=== PATIENT | male | born 1960 | race American Indian/Alaskan Native ===

== ENCOUNTER 2020-07-06 19:55 | Emergency (ER) | payer SELFPAY ==
[2020-07-06] MEDS ORDERED: SODIUM CHLORIDE 0.9% 500 ML 500 ML IV ONE ×2 (20:08→21:43)
[2020-07-06] MEDS: cefTRIAXone/NS 2 GM/100 ML 2 GM/100 ML BAG IV SCH (20:14)
[2020-07-06 20:28] LABS: ABG Base Excess -6.6 mmol/L (-2.0-3.0); ABG HCO3 17.1 mmol/L (20.0-26.0); ABG Methemoglobin 0.6 % (0.0-1.5); ABG Oxygen Saturation 89.3 % (95.0-99.0); ABG PCO2 29.8 mm Hg; ABG PH 7.378 pH Units (7.350-7.450); ABG PO2 60.2 mm Hg (80.0-90.0)
[2020-07-06 20:56] LABS: Hematocrit 44.5 % (35.5-45.6); Hemoglobin 14.4 gm/dl (11.8-15.2); Mean Corpuscular HGB Conc 32 % (32-34); Mean Corpuscular Volume 93 fl (84-94); Red Blood Count 4.81 M/mm3 (3.65-5.03); Red Cell Distribution Width 13.5 % (13.2-15.2)
[2020-07-06 20:57] LABS: Platelet Count 70 K/mm3 (140-440)
[2020-07-06 21:08] LABS: Albumin 2.5 g/dL (3.9-5); Calcium 8.4 mg/dL (8.4-10.2)
--- NOTE | 2020-07-06 21:08 | XRay Report ---
CHEST 1 VIEW 8:29 PM INDICATION / CLINICAL INFORMATION: Respiratory distress. COMPARISON: None available. FINDINGS: SUPPORT DEVICES: None. HEART / MEDIASTINUM: The heart size is normal. Pulmonary vasculature is difficult to evaluate. LUNGS / PLEURA: There is moderate patchy parenchymal disease throughout both lungs, more prominent pe ripherally and on the left. No significant pleural effusion. No pneumothorax. ADDITIONAL FINDINGS: No significant additional findings. IMPRESSION: Moderate patchy parenchymal disease bilaterally is nonspecific. Differential diagnosis in cludes atypical causes of infection, including viral pneumonia, and asymmetric edema. Signer Name: Kiet Rome MD Signed: 07/06/2020 9:03 PM Workstation Name: [id number]
[2020-07-06 21:09] LABS: C-Reactive Protein 22.5 mg/dL (0.00-1.30)
[2020-07-06 21:35] LABS: INR 1.43 (0.87-1.13); Partial Thromboplastin Time 29.2 Sec. (24.2-36.6)
[2020-07-06 21:36] LABS: Thrombin Time 18.6 Sec. (15.1-19.6)
[2020-07-06 21:42] LABS: Creatine Kinase MB 11.9 ng/mL (0.0-4.0)
[2020-07-06] MEDS ORDERED: SODIUM CHLORIDE 0.9% 1000 ML 1,000 ML IV ONE (21:43)
[2020-07-06] MEDS ORDERED: INSULIN REGULAR, HUMAN 100 UNIT/ML 3ML VIAL IV ONE (21:44)
--- NOTE | 2020-07-06 21:49 | Emergency Department Report ---
ED Neuro Deficit HPI - General Chief Complaint: Dyspnea/Respdistress Stated Complaint: DIFFICULTY BREATHING Time Seen by Provider: 07/06/20 20:05 Source: patient, RN/MD Mode of arrival: Stretcher Limitations: Other - History of Present Illness Initial Comments: [facility] Consult Services TeleStroke Metrics: LKW: 2107 Door Time: 1954 [facility] Contacted: 2103 [facility] at Bedside: 2111 NIHSS: 2125 Decision on Alteplase: Not to give as the patient's platelets are currently 70. Interventional Candidate: Possible candidate based on presentation. CTA head and neck are pending. Chief Complaint: Shortness of breath with acute right-sided weakness HPI: Asked to see this patient in emergent telemedicine consultation utilizing interactive audio and video technologies. Consultation was performed with assistance of ancillary / medical staff at bedside. Verbal consent to perform the examination with telemedicine was obtained. Patient agreed to proceed with the consultation for acute stroke protocol. 59-year-old right-handed [place] male who originally came to the hospital by EMS for acute respiratory failure and shortness of breath. Patient states he is not on any blood thinners or aspirin. He has never had a stroke before. Patient presented to the emergency room sometime around 8 PM. ER team suspects Covid pneumonia, and the patient was placed on BiPAP. He was noted to be moving all of his extremities and was following commands when he first came in. Then sometime around 9:08 PM, staff noticed that he was flaccid on the right side with an obvious right facial droop and slurred speech. Therefore, stroke alert was initiated. PMH: Hypertension SOC: Positive for tobacco abuse. Negative x2. He lives alone. FMH: Father with a stroke before ROS: 13 point review of systems were reviewed with the patient, and are all negative with the exception of the aforementioned in the history of present illness. VS: Pulse 125, respiration 47, blood pressure 149/70, 94% Exam: Patient is in moderate respiratory distress due to shortness of breath. Patient appears as stated age. No obvious acute cardiac distress. Patient is well groomed and well-nourished. 1a- LOC: Keenly responsive - 0 1b- LOC questions: Answers both questions correctly - 0 1c- LOC commands- Performs both tasks correctly- 0 2- Gaze: Normal; no gaze paresis or gaze deviation - 0 3- Visual Osuna: Right visual field deficit - 2 4- Facial movements: Right facial palsy - 2 5- Upper limb motor Right arm drift - 4 6- Lower limb motor Right leg drift - 3 7- Limb Coordination: absent ataxia - 0 8- Sensory: no sensory loss - 0 9- Language - No aphasia - 0 10- Speech - Mild dysarthria - 1 11- Neglect / Extinction - none found - 0 NIHSS score: 12 Diagnostic Data: WBC 17.7, hemoglobin 14.4, platelets 70 C-reactive protein 22.5, lactic acid 4.5, D-dimer greater than 10,000 Sodium 138, potassium 5.1, BUN 36, creatinine 1.5, blood glucose 609 ABG showed a pH of 7.37, PO2 60.2, PCO2 29.8 CT head showed no acute intracranial hemorrhage or mass. There appears to be a small acute right posterior parietal/MCA territory cortical stroke. There could also possible be a hyperdense left M2 sign within the left sylvian fissure. Medical Data Reviewed: 1.Data?reviewed include clinical labs, radiology,?and medical tests; 2.Tests?results discussed w/performing or interpreting physician; 3.Obtaining/reviewing old medical records; 4.Obtaining?case history from another source; 5.Independent?review of image, tracing, or specimen. Medical Decision Making: - Extensive number of diagnosis or management options are considered below. - Extensive amount of complex data reviewed. - High risk of complication and/or morbidity or mortality are associated with differential diagnostic considerations below. - There may be?uncertain?outcome and increased probability of prolonged functional impairment or high probability of severe prolonged functional impairment associated with some of these differential diagnosis. Differential Diagnosis for Stroke: 1.?Cardioembolic?stroke 2. Small vessel disease/lacune 3. Thromboembolic, [id number] mechanism 4.?Hypercoagulable?state-related infarct 5. Transient ischemic attack 6. Thrombotic mechanism, large artery disease Assessment: 1. Acute left MCA embolic stroke 2. Possible acute right MCA embolic stroke 3. Acute respiratory failure with possible Covid pneumonia 4. Hypertension 5. Tobacco abuse Recommendations: Patient is being sent back for a CT angiogram of the head and neck to evaluate for a left MCA large vessel occlusion. If positive, patient should be tra nsferred to a tertiary center that can offer evaluation for mechanical thrombectomy. Patient would likely require intubation prior to his transfer. If CTA head is negative for large vessel occlusion, he can be admitted to the hospital for further work-up of his symptoms. Infectious and pulmonary work-up and management per primary team Check MRI brain without contrast to rule out any acute intracranial process Check echocardiogram to gauge his cardiac function Maintain the patient on telemetry to monitor for paroxysmal atrial fibrillation Check hemoglobin A1c, lipid panel, and urine drug screen Consult PT, OT, and ST when he is more stable Maintain the patient on rectal aspirin for now Allow permissive hypertension Continue supportive care Thank you for allowing [facility] to participate in the care of your patient. Please call me, Dr. Gabriel, with any questions at [phone]. Case discussed with the ER staff and Dr. Ortiz. Critical Care notation: I was called to see this critical patient emergently. I personally evaluated this critical patient for acute stroke evaluation, and determining their eligibility for IV Alteplase and interventional therapies. I have spent approximately 7 minutes with the patient, including time at bedside, time discussing the case with other physicians, reviewing plan of care, and time independently reviewing the records and scans. - Related Data Allergies/Adverse Reactions: Allergies Allergy/AdvReac Type Severity Reaction Status Date / Time No Known Allergies Allergy Verified 07/06/20 20:54 ED Review of Systems ROS: Stated complaint: DIFFICULTY BREATHING Other details as noted in HPI ED Neuro Physical Exam - General Limitations: Other Suspected Stroke: Yes - NIHSS Assessment Interval: Baseline 1a. Level of Consciousness: alert/keenly responsive 1b. LOC Questions: answers both correctly 1c. LOC Commands: performs tasks correctly 2. Best Gaze: normal 3. Visual: complete hemianopia 4. Facial Palsy: partial paralysis 5b. Motor Arm Right: no movement 5a. Motor Arm Left: no drift 6a. Motor Leg Left: no drift 6b. Motor Leg Right: no gravity effort 7. Limb Ataxia: absent 8. Sensory: normal 9. Best Language: no aphasia 10. Dysarthria: mild/moderate dysarthria 11. Extinction/Inattention: no abnormality Total Score: 12 Stroke Severity: Moderate Stroke ED Course Vital Signs 07/06/20 07/06/20 07/06/20 16:41 16:45 17:00 Pulse Rate 95 H 99 H 94 H Respiratory 26 H 24 25 H Rate Blood Pressure 151/80 159/72 159/72 Blood Pressure [Left] O2 Sat by Pulse 100 100 100 Oximetry 07/06/20 07/06/20 07/06/20 17:16 17:30 17:46 Pulse Rate 92 H 86 86 Respiratory 27 H 25 H 23 Rate Blood Pressure 125/74 135/71 134/72 Blood Pressure [Left] O2 Sat by Pulse 100 100 100 Oximetry 07/06/20 07/06/20 07/06/20 18:00 18:15 18:30 Pulse Rate 86 85 83 Respiratory 24 23 25 H Rate Blood Pressure 136/67 140/71 140/71 Blood Pressure [Left] O2 Sat by Pulse 100 100 Oximetry 07/06/20 07/06/20 07/06/20 18:46 19:00 19:16 Pulse Rate 88 78 78 Respiratory 21 22 24 Rate Blood Pressure 136/74 145/70 143/69 Blood Pressure [Left] O2 Sat by Pulse 100 100 100 Oximetry 07/06/20 07/06/20 07/06/20 19:30 20:07 20:25 Pulse Rate 77 122 H 123 H Respiratory 22 38 H 38 H Rate Blood Pressure 146/72 123/82 Blood Pressure 123/82 [Left] O2 Sat by Pulse 100 97 Oximetry 07/06/20 07/06/20 20:41 20:45 Pulse Rate 124 H 125 H Respiratory 46 H 47 H Rate Blood Pressure 125/74 149/70 Blood Pressure [Left] O2 Sat by Pulse 96 94 Oximetry - Lab Data Result diagrams: 07/06/20 20:29 07/06/20 20:29 Lab Results 07/06/20 07/06/20 07/06/20 Range/Units 20:10 20:29 20:29 WBC 17.7 H (4.5-11.0) K/mm3 RBC 4.81 (3.65-5.03) M/mm3 Hgb 14.4 (11.8-15.2) gm/dl Hct 44.5 (35.5-45.6) % MCV 93 (84-94) fl MCH 30 (28-32) pg MCHC 32 (32-34) % RDW 13.5 (13.2-15.2) % Plt Count 70 L (140-440) K/mm3 Seg Neutrophils % Medical Billing And Coding Instructor PT (12.2-14.9) Sec. INR (0.87-1.13) APTT (24.2-36.6) Sec. Thrombin Time (15.1-19.6) Sec. D-Dimer (0-234) ng/mlDDU ABG pH 7.378 (7.350-7.450) pH Units ABG pCO2 29.8 mm Hg ABG pO2 60.2 L (80.0-90.0) mm Hg ABG HCO3 17.1 L (20.0-26.0) mmol/L ABG O2 Saturation 89.3 L (95.0-99.0) % ABG O2 Content 18.1 (0.0-44) ABG Base Excess -6.6 L (-2.0-3.0) mmol/L ABG Hemoglobin 14.8 (14.0-18.0) gm/dl ABG Carboxyhemoglobin 1.4 (0.0-5.0) % ABG Methemoglobin 0.6 (0.0-1.5) % Oxyhemoglobin 87.4 L (95.0-99.0) % FiO2 100 % Sodium 138 (137-145) mmol/L Potassium 5.1 H (3.6-5.0) mmol/L Chloride 99.9 (98-107) mmol/L Carbon Dioxide 20 L (22-30) mmol/L Anion Gap 23 mmol/L BUN 36 H (9-20) mg/dL Creatinine 1.5 H (0.8-1.3) mg/dL Estimated GFR 48 ml/min BUN/Creatinine Ratio 24 % Glucose 605 H* (75-100) mg/dL POC Glucose (70-105) mg/dL Lactic Acid (0.7-2.0) mmol/L Calcium 8.4 (8.4-10.2) mg/dL Total Bilirubin 0.40 (0.1-1.2) mg/dL AST 27 (5-40) units/L ALT 8 (7-56) units/L Alkaline Phosphatase 135 H (35-129) units/L Lactate Dehydrogenase (91-180) units/L Total Creatine Kinase (55-170) units/L CK-MB (CK-2) (0.0-4.0) ng/mL CK-MB (CK-2) Rel Index (0-4) Troponin T (0.00-0.029) ng/mL C-Reactive Protein (0.00-1.30) mg/dL Total Protein 6.5 (6.3-8.2) g/dL Albumin 2.5 L (3.9-5) g/dL Albumin/Globulin Ratio 0.6 % 07/06/20 07/06/20 07/06/20 Range/Units 20:29 20:29 20:29 WBC (4.5-11.0) K/mm3 RBC (3.65-5.03) M/mm3 Hgb (11.8-15.2) gm/dl Hct (35.5-45.6) % MCV (84-94) fl MCH (28-32) pg MCHC (32-34) % RDW (13.2-15.2) % Plt Count (140-440) K/mm3 Seg Neutrophils % PT (12.2-14.9) Sec. INR (0.87-1.13) APTT (24.2-36.6) Sec. Thrombin Time (15.1-19.6) Sec. D-Dimer > 29673 H (0-234) ng/mlDDU ABG pH (7.350-7.450) pH Units ABG pCO2 mm Hg ABG pO2 (80.0-90.0) mm Hg ABG HCO3 (20.0-26.0) mmol/L ABG O2 Saturation (95.0-99.0) % ABG O2 Content (0.0-44) ABG Base Excess (-2.0-3.0) mmol/L ABG Hemoglobin (14.0-18.0) gm/dl ABG Carboxyhemoglobin (0.0-5.0) % ABG Methemoglobin (0.0-1.5) % Oxyhemoglobin (95.0-99.0) % FiO2 % Sodium (137-145) mmol/L Potassium (3.6-5.0) mmol/L Chloride (98-107) mmol/L Carbon Dioxide (22-30) mmol/L Anion Gap mmol/L BUN (9-20) mg/dL Creatinine (0.8-1.3) mg/dL Estimated GFR ml/min BUN/Creatinine Ratio % Glucose 609 H* (75-100) mg/dL POC Glucose (70-105) mg/dL Lactic Acid 4.50 H* (0.7-2.0) mmol/L Calcium (8.4-10.2) mg/dL Total Bilirubin (0.1-1.2) mg/dL AST (5-40) units/L ALT (7-56) units/L Alkaline Phosphatase (35-129) units/L Lactate Dehydrogenase 615 H (91-180) units/L Total Creatine Kinase (55-170) units/L CK-MB (CK-2) (0.0-4.0) ng/mL CK-MB (CK-2) Rel Index (0-4) Troponin T (0.00-0.029) ng/mL C-Reactive Protein 22.50 H (0.00-1.30) mg/dL Total Protein (6.3-8.2) g/dL Albumin (3.9-5) g/dL Albumin/Globulin Ratio % 07/06/20 07/06/20 07/06/20 Range/Units 21:14 21:14 21:35 WBC (4.5-11.0) K/mm3 RBC (3.65-5.03) M/mm3 Hgb (11.8-15.2) gm/dl Hct (35.5-45.6) % MCV (84-94) fl MCH (28-32) pg MCHC (32-34) % RDW (13.2-15.2) % Plt Count (140-440) K/mm3 Seg Neutrophils % PT 17.4 H (12.2-14.9) Sec. INR 1.43 H (0.87-1.13) APTT 29.2 (24.2-36.6) Sec. Thrombin Time 18.6 (15.1-19.6) Sec. D-Dimer (0-234) ng/mlDDU ABG pH (7.350-7.450) pH Units ABG pCO2 mm Hg ABG pO2 (80.0-90.0) mm Hg ABG HCO3 (20.0-26.0) mmol/L ABG O2 Saturation (95.0-99.0) % ABG O2 Content (0.0-44) ABG Base Excess (-2.0-3.0) mmol/L ABG Hemoglobin (14.0-18.0) gm/dl ABG Carboxyhemoglobin (0.0-5.0) % ABG Methemoglobin (0.0-1.5) % Oxyhemoglobin (95.0-99.0) % FiO2 % Sodium (137-145) mmol/L Potassium (3.6-5.0) mmol/L Chloride (98-107) mmol/L Carbon Dioxide (22-30) mmol/L Anion Gap mmol/L BUN (9-20) mg/dL Creatinine (0.8-1.3) mg/dL Estimated GFR ml/min BUN/Creatinine Ratio % Glucose (75-100) mg/dL POC Glucose 484 H (70-105) mg/dL Lactic Acid (0.7-2.0) mmol/L Calcium (8.4-10.2) mg/dL Total Bilirubin (0.1-1.2) mg/dL AST (5-40) units/L ALT (7-56) units/L Alkaline Phosphatase (35-129) units/L Lactate Dehydrogenase (91-180) units/L Total Creatine Kinase 445 H (55-170) units/L CK-MB (CK-2) 11.9 H (0.0-4.0) ng/mL CK-MB (CK-2) Rel Index 2.6 (0-4) Troponin T 0.165 H* (0.00-0.029) ng/mL C-Reactive Protein (0.00-1.30) mg/dL Total Protein (6.3-8.2) g/dL Albumin (3.9-5) g/dL Albumin/Globulin Ratio % Critical care attestation.: If time is entered above; I have spent that time in minutes in the direct care of this critically ill patient, excluding procedure time. 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
--- NOTE | 2020-07-06 21:52 | Cat Scan Report ---
CT BRAIN: 07/06/2020 INDICATION / CLINICAL INFORMATION: Right-sided weakness COMPARISON: None available. FINDINGS: BRAIN/INTRACRANIAL STRUCTURES: Unenhanced CT images of the brain were obtained. No previous studies a re available here for comparison. There are several areas of abnormality. There is a 1 cm area of hypoattenuation in the left centrum semiovale, consistent with ischemic injur y of indeterminate age. There is a patchy area of hypoattenuation present in the right parieto-occipital cortex,, with no archana dence of hemorrhage. This may be an additional area of ischemic injury, with differential diagnosis d iscussed below. Bilateral cerebellar white matter and cortical hyper dense lesions are present bilaterally. This may also be due to ischemic injury, although underlying lesions cannot be excluded. EXTRACRANIAL STRUCTURES: Unremarkable. IMPRESSION: Scattered areas of cortical white matter hypodensity as described above, including left centrum semi ovale, right parieto-occipital cortex, and cerebellar hemispheres bilaterally. Differential diagnoses would include ischemic lesions of indeterminate age, possibly recent. Underlying multifocal parenchy mal lesions also be considered. Depending on further details of the clinical circumstances, follow-up with unenhanced and enhanced MRI may be helpful for further evaluation. No evidence of hemorrhage. Notification: Dr. Ortiz in the emergency department at [address] scans at this location are performed using dose reduction to ALARA by means of automated expos ure control. Signer Name: Adiel Short MD Signed: 07/06/2020 9:48 PM Workstation Name: [id number]
[2020-07-06 21:59] LABS: Chol/HDL Ratio 6.38 %
[2020-07-06] MEDS ORDERED: ASPIRIN 325 MG TAB PO ONE (22:04)
--- NOTE | 2020-07-06 22:11 | Consultation ---
History of Present Illness Consult date: 07/06/20 History of present illness: [facility] Tele[facility] Consult [facility] Date of Service: 07/06/2020 21:48:01 Impression: I63.9 - Cerebrovascular accident (CVA), unspecified mechanism (HCC) Comments/Sign-Out: 59 y/o man who presented to the ED with shortness of breath. Emergent telestroke consult for right sided weakness that occurred in the ED. Patient is thrombocytopenic. Metrics: Last Known Well: 07/06/2020 21:08:00 [facility] Notification Time: 07/06/2020 21:47:17 Arrival Time: 07/06/2020 19:55:00 Symptom Onset During ED Stay: 07/06/2020 09:56:45 Stamp Time: 07/06/2020 21:48:01 Time First Login Attempt: 07/06/2020 21:51:30 Video Start Time: 07/06/2020 21:51:30 Symptoms: right sided weakness NIHSS Start Assessment Time: 07/06/2020 21:55:12 Patient is not a candidate for Alteplase/Activase. Patient was not deemed candidate for Alteplase/Activase thrombolytics because of thrombocytopenia and coagulopathy. Video End Time: 07/06/2020 22:07:22 CT head was reviewed. Lower Likelihood of Large Vessel Occlusion but Following Stat Studies are Recommended CTA Head and Neck. Reviewed, No Indication of Large Vessel Occlusive Thrombus, Patient is not an MICHAEL Candidate. Radiologist was not called back for review of advanced imaging because Advanced neuroimaging reviewed and discussed with the ED attending. No proximal intracranial LVO as per my review. Not a thrombectomy candidate. Formal radiology read pending and to be f/u by the ED attending. Please call with any questions. Our recommendations are outlined below. Recommendations: Activate Stroke Protocol Admission/Order Set Stroke/Telemetry Floor Neuro Checks Bedside Swallow Eval DVT Prophylaxis IV Fluids, Normal Saline Head of Bed 30 Degrees Euglycemia and Avoid Hyperthermia (PRN Acetaminophen) Hold Antithrombotics for Now Covid testing Routine Consultation with Inhouse Neurology for Follow up Care Sign Out: Discussed with Emergency Department Provider History of Present Illness: Patient is a 59 year old Male. 59 y/o man who presented to the ED with shortness of breath. Emergent telestroke consult for right sided weakness that occurred in the ED. Last reported well at 2108 as per bedside nurse. He is on NIPPV due to respiratory distress. Patient is thrombocytopenic. Also elevated D-dimer and PT and INR. Patient reportedly exposed to a Covid. Neuroimaging reviewed and case discussed with ED attending at bedside. Examination: BP(173/113), Pulse(125), Blood Glucose(609) 1A: Level of Consciousness - Alert; keenly responsive + 0 1B: Ask Month and Age - Both Questions Right + 0 1C: Blink Eyes & Squeeze Hands - Performs Both Tasks + 0 2: Test Horizontal Extraocular Movements - Normal + 0 3: Test Visual Osuna - No Visual Loss + 0 4: Test Facial Palsy (Use Grimace if Obtunded) - Partial paralysis (lower face) + 2 5A: Test Left Arm Motor Drift - No Drift for 10 Seconds + 0 5B: Test Right Arm Motor Drift - No Effort Against [place] + 3 6A: Test Left Leg Motor Drift - No Drift for 5 Seconds + 0 6B: Test Right Leg Motor Drift - Some Effort Against [place] + 2 7: Test Limb Ataxia (FNF/Heel-Galvan) - No Ataxia + 0 8: Test Sensation - Mild-Moderate Loss: Less Sharp/More Dull + 1 9: Test Language/Aphasia - Normal; No aphasia + 0 10: Test Dysarthria - Mild-Moderate Dysarthria: Slurring but can be understood + 1 11: Test Extinction/Inattention - No abnormality + 0 NIHSS Score: 9 Patient/Family was informed the Neurology Consult would happen via TeleHealth consult by way of interactive audio and video telecommunications and consented to receiving care in this manner. Due to the immediate potential for life-threatening deterioration due to underlying acute neurologic illness, I spent 20 minutes providing critical care. This time includes time for face to face visit via telemedicine, review of medical records, imaging studies and discussion of findings with providers, the patient and/or family. Dr Keven Monson [facility] Case [id number] Medications and Allergies Allergies Allergy/AdvReac Type Severity Reaction Status Date / Time No Known Allergies Allergy Verified 07/06/20 20:54 Active Meds: Active Medications Ceftriaxone Sodium (Rocephin/Ns 2 Gm/100 Ml) 2 gm in 100 mls @ 200 mls/hr IV Q24HR DONNIE; Protocol Last Admin: 07/06/20 20:14 Dose: 200 mls/hr Documented by: Azithromycin 500 mg/ Sodium (Chloride) 250 mls @ 250 mls/hr IV Q24HR DONNIE; Protocol Sodium Chloride (Nacl 0.9% 1000 Ml) 1,000 mls @ 999 mls/hr IV BOLUS ONE Stop: 07/06/20 22:43 Sodium Chloride (Nacl 0.9% 500 Ml) 500 mls @ 999 mls/hr IV ONCE ONE Stop: 07/06/20 22:13 Physical Examination - Vital Signs Vital Signs: Vital Signs Pulse Resp BP Pulse Ox 95 H 26 H 151/80 100 07/06/20 16:41 07/06/20 16:41 07/06/20 16:41 07/06/20 16:41 Results - Laboratory Findings CBC and BMP: 07/06/20 20:29 07/06/20 20:29 Abnormal Lab Findings: Abnormal Labs 07/06/20 07/06/20 07/06/20 20:10 20:29 20:29 WBC 17.7 H Plt Count 70 L PT INR D-Dimer ABG pO2 60.2 L ABG HCO3 17.1 L ABG O2 Saturation 89.3 L ABG Base Excess -6.6 L Oxyhemoglobin 87.4 L Potassium 5.1 H Carbon Dioxide 20 L BUN 36 H Creatinine 1.5 H Glucose 605 H* POC Glucose Lactic Acid Alkaline Phosphatase 135 H Lactate Dehydrogenase Total Creatine Kinase CK-MB (CK-2) Troponin T C-Reactive Protein Albumin 2.5 L Triglycerides HDL Cholesterol 07/06/20 07/06/20 07/06/20 20:29 20:29 20:29 WBC Plt Count PT INR D-Dimer > 74985 H ABG pO2 ABG HCO3 ABG O2 Saturation ABG Base Excess Oxyhemoglobin Potassium Carbon Dioxide BUN Creatinine Glucose 609 H* POC Glucose Lactic Acid 4.50 H* Alkaline Phosphatase Lactate Dehydrogenase 615 H Total Creatine Kinase CK-MB (CK-2) Troponin T C-Reactive Protein 22.50 H Albumin Triglycerides HDL Cholesterol 07/06/20 07/06/20 07/06/20 21:14 21:14 21:35 WBC Plt Count PT 17.4 H INR 1.43 H D-Dimer ABG pO2 ABG HCO3 ABG O2 Saturation ABG Base Excess Oxyhemoglobin Potassium Carbon Dioxide BUN Creatinine Glucose POC Glucose 484 H Lactic Acid Alkaline Phosphatase Lactate Dehydrogenase Total Creatine Kinase 445 H CK-MB (CK-2) 11.9 H Troponin T 0.165 H* C-Reactive Protein Albumin Triglycerides 184 H HDL Cholesterol 18 L
[2020-07-06 22:20] LABS: Band Neutrophils # (Manual) 0.2 K/mm3; Basophils % (Manual) 0 % (0.0-1.8); Eosinophils % (Manual) 0 % (0.0-4.3); Total Cells Counted 100
[2020-07-06 22:24] LABS: Burr Cells Rare; Platelet Estimate Consistent w Auto
[2020-07-06] MEDS ORDERED: INSULIN REGULAR, HUMAN 100 UNITS/1 ML ONE (22:30)
--- NOTE | 2020-07-06 22:34 | Cat Scan Report ---
CTA HEAD WITH CONTRAST HISTORY: Right-sided weakness COMPARISON: None. TECHNIQUE: All CT scans at this location are performed using CT dose reduction for ALARA by means of automated exposure control.. 3-D/MIP reformats postprocessed. Percentage stenosis is determined by d irect quantitative measurements of diseased internal carotid artery diameter compared with normal dis claudette internal carotid artery reference segments or by criteria similar to NASCET where applicable. CONTRAST: 100 ml of Isovue 370 FINDINGS: CTA HEAD: Intracranial vertebral arteries: No significant abnormality. Basilar artery: No significant abnormality. Posterior cerebral arteries: No significant abnormality. Intracranial internal carotid arteries: No significant abnormality. Anterior cerebral arteries: No significant abnormality. Middle cerebral arteries: No significant abnormality. Dural venous sinuses:Not optimally opacified. No significant abnormality. Additional findings: Unenhanced CT evidence of abnormal vascularity or enhancement associated with th e areas of hypoattenuation identified on the earlier head CT. Incidental note is made of a right occipital scalp lipoma. IMPRESSION: 1. No significant abnormality. Signer Name: Adiel Short MD Signed: 07/06/2020 10:30 PM Workstation Name: [id number]
--- NOTE | 2020-07-06 22:37 | Cat Scan Report ---
CTA NECK WITH CONTRAST 07/06/2020 INDICATION / CLINICAL INFORMATION: Right-sided weakness. COMPARISON: None. TECHNIQUE: Routine CTA of the neck is performed. 3-D/MIP reformats were postprocessed. Percentage st enosis is determined by direct quantitative measurements of diseased internal carotid artery diameter compared with normal distal internal carotid artery reference segments or by criteria similar to DEMETRIUS CET where applicable. All CT scans at this location are performed using CT dose reduction for ALARA b y means of automated exposure control. CONTRAST: 100 ml of Isovue 370 FINDINGS: Carotid bifurcations: No evidence of carotid bifurcation stenosis. Carotid arteries: No significant abnormality. Cervical vertebral arteries: No significant abnormality. Aortic arch: No significant abnormality. Visualized portions of the upper lung dawn demonstrate extensive coarse pulmonary infiltrates, with more focal consolidation in the upper portion of the right lower lobe. Lungs are only partially eval uated as part of the cervical spine protocol. IMPRESSION: No evidence of significant vascular abnormality. Prominent pulmonary infiltrates suspicious for Covid bronchopneumonia. Signer Name: Adiel Short MD Signed: 07/06/2020 10:33 PM Workstation Name: [id number]
[2020-07-06] MEDS: AZITHROMYCIN 500 MG in SODIUM CHLORIDE 0.9% 250ML 250 ML IV SCH (22:42)
[2020-07-06] MEDS ORDERED: dexAMETHasone 20 MG/5 ML VIAL IV ONE (23:09)
--- NOTE | 2020-07-06 23:19 | Emergency Department Report ---
ED General Adult HPI - General Chief complaint: Dyspnea/Respdistress Stated complaint: DIFFICULTY BREATHING Time Seen by Provider: 07/06/20 20:05 Source: patient, RN/MD Mode of arrival: Stretcher Limitations: Other - History of Present Illness Initial comments: Patient is a 59-year-old gentleman who is presenting with with respiratory distress. Patient has had a exposure to COVID-19 per the patient. He has a history of hypertension diabetes. Patient is had increased shortness of breath over the last day. Paramedics state that his O2 sats were in the 50s on their arrival he was placed on a nonrebreather. We have placed the patient on BiPAP. States he has no chest pain has some mild body aches. Is been no nausea vomiting or diarrhea. There is a language barrier and we do not have any other information at this time. - Related Data Allergies Allergy/AdvReac Type Severity Reaction Status Date / Time No Known Allergies Allergy Verified 07/06/20 20:54 ED Review of Systems ROS: Stated complaint: DIFFICULTY BREATHING Other details as noted in HPI Comment: All other systems reviewed and negative ED Physical Exam - General Limitations: Language Barrier, Other General appearance: alert, in no apparent distress - Head Head exam: Present: atraumatic, normocephalic - Eye Eye exam: Present: normal appearance, PERRL, EOMI - ENT ENT exam: Present: normal orophraynx, mucous membranes moist - Neck Neck exam: Present: normal inspection - Respiratory Respiratory exam: Present: respiratory distress, rhonchi, accessory muscle use. Absent: normal lung sounds bilaterally, wheezes, rales - Cardiovascular Cardiovascular Exam: Present: normal rhythm, tachycardia, normal heart sounds. Absent: systolic murmur, diastolic murmur, rubs, gallop - GI/Abdominal GI/Abdominal exam: Present: soft, normal bowel sounds. Absent: distended, tenderness, guarding, rebound - Rectal Rectal exam: Present: deferred - Extremities Exam Extremities exam: Present: normal inspection - Back Exam Back exam: Present: normal inspection - Neurological Exam Neurological exam: Present: alert, oriented X3 - Psychiatric Psychiatric exam: Present: normal affect, normal mood - Skin Skin exam: Present: warm, dry, intact, normal color. Absent: rash ED Course Vital Signs 07/06/20 07/06/20 07/06/20 16:41 16:45 17:00 Pulse Rate 95 H 99 H 94 H Respiratory 26 H 24 25 H Rate Blood Pressure 151/80 159/72 159/72 Blood Pressure [Left] O2 Sat by Pulse 100 100 100 Oximetry 07/06/20 07/06/20 07/06/20 17:16 17:30 17:46 Pulse Rate 92 H 86 86 Respiratory 27 H 25 H 23 Rate Blood Pressure 125/74 135/71 134/72 Blood Pressure [Left] O2 Sat by Pulse 100 100 100 Oximetry 07/06/20 07/06/20 07/06/20 18:00 18:15 18:30 Pulse Rate 86 85 83 Respiratory 24 23 25 H Rate Blood Pressure 136/67 140/71 140/71 Blood Pressure [Left] O2 Sat by Pulse 100 100 Oximetry 07/06/20 07/06/20 07/06/20 18:46 19:00 19:16 Pulse Rate 88 78 78 Respiratory 21 22 24 Rate Blood Pressure 136/74 145/70 143/69 Blood Pressure [Left] O2 Sat by Pulse 100 100 100 Oximetry 07/06/20 07/06/20 07/06/20 19:30 19:46 20:00 Pulse Rate 77 121 H Respiratory 22 44 H Rate Blood Pressure 146/72 149/70 123/82 Blood Pressure [Left] O2 Sat by Pulse 100 92 Oximetry 07/06/20 07/06/20 07/06/20 20:07 20:16 20:25 Pulse Rate 122 H 121 H 123 H Respiratory 38 H 47 H 38 H Rate Blood Pressure 94/66 123/82 Blood Pressure 123/82 [Left] O2 Sat by Pulse 97 Oximetry 07/06/20 07/06/20 07/06/20 20:41 20:45 21:01 Pulse Rate 124 H 125 H 126 H Respiratory 46 H 47 H 57 H Rate Blood Pressure 125/74 149/70 153/93 Blood Pressure [Left] O2 Sat by Pulse 96 94 80 L Oximetry 07/06/20 07/06/20 07/06/20 21:23 21:30 21:55 Pulse Rate 124 H 123 H Respiratory 45 H 20 Rate Blood Pressure 153/93 172/106 172/106 Blood Pressure [Left] O2 Sat by Pulse 64 L 78 L 89 Oximetry 07/06/20 07/06/20 07/06/20 22:00 22:15 22:31 Pulse Rate 126 H 130 H 130 H Respiratory 48 H 44 H 47 H Rate Blood Pressure 173/113 173/113 170/104 Blood Pressure [Left] O2 Sat by Pulse 93 89 90 Oximetry 07/06/20 07/06/20 07/06/20 22:33 22:34 22:45 Pulse Rate 125 H 131 H 102 H Respiratory 49 H 56 H Rate Blood Pressure 217/134 217/134 170/104 Blood Pressure [Left] O2 Sat by Pulse 91 Oximetry 07/06/20 23:01 Pulse Rate 100 H Respiratory 48 H Rate Blood Pressure 170/104 Blood Pressure [Left] O2 Sat by Pulse 65 L Oximetry - Reevaluation(s) Reevaluation #1: Neurology consult is as follows CTA head appears to show patent proximal bilateral MCA vessels, basilar artery, and vertebral arteries. Formal report is pending. Dr. Ortiz was updated on these findings. He will await formal read from radiology. Patient is not an interventional candidate at this point in time. Original Note: ED Neuro Deficit HPI - General Chief Complaint: Dyspnea/Respdistress Stated Complaint: DIFFICULTY BREATHING Time Seen by Provider: 07/06/20 20:05 Source: patient, RN/MD Mode of arrival: Stretcher Limitations: Other - History of Present Illness Initial Comments: [facility] TeleStroke Metrics: LKW: 2107 Door Time: 1954 [facility] Contacted: 2103 [facility] at Bedside: 2111 NIHSS: 2126 Decision on Alteplase: Not to give as the patient's platelets are currently 70. Interventional Candidate: Possible candidate based on presentation. CTA head and neck are pending. Chief Complaint: Shortness of breath with acute right-sided weakness HPI: Asked to see this patient in emergent telemedicine consultation utilizing interactive audio and video technologies. Consultation was performed with assistance of ancillary / medical staff at bedside. Verbal consent to perform the examination with telemedicine was obtained. Patient agreed to proceed with the consultation for acute stroke protocol. 59-year-old right-handed [place] male who originally came to the hospital by EMS for acute respiratory failure and shortness of breath. Patient states he is not on any blood thinners or aspirin. He has never had a stroke before. Patient presented to the emergency room sometime around 8 PM. ER team suspects Covid pneumonia, and the patient was placed on BiPAP. He was noted to be moving all of his extremities and was following commands when he first came in. Then sometime around 9:08 PM, staff noticed that he was flaccid on the right side with an obvious right facial droop and slurred speech. Therefore, stroke alert was initiated. PMH: Hypertension SOC: Positive for tobacco abuse. Negative x2. He lives alone. FMH: Father with a stroke before ROS: 13 point review of systems were reviewed with the patient, and are all negative with the exception of the aforementioned in the history of present illness. VS: Pulse 125, respiration 47, blood pressure 149/70, 94% Exam: Patient is in moderate respiratory distress due to shortness of breath. Patient appears as stated age. No obvious acute cardiac distress. Patient is well groomed and well-nourished. 1a- LOC: Keenly responsive - 0 1b- LOC questions: Answers both questions correctly - 0 1c- LOC commands- Performs both tasks correctly- 0 2- Gaze: Normal; no gaze paresis or gaze deviation - 0 3- Visual [place]: Right visual field deficit - 2 4- Facial movements: Right facial palsy - 2 5- Upper limb motor Right arm drift - 4 6- Lower limb motor Right leg drift - 3 7- Limb Coordination: absent ataxia - 0 8- Sensory: no sensory loss - 0 9- Language - No aphasia - 0 10- Speech - Mild dysarthria - 1 11- Neglect / Extinction - none found - 0 NIHSS score: 12 Diagnostic Data: WBC 17.7, hemoglobin 14.4, platelets 70 C-reactive protein 22.5, lactic acid 4.5, D-dimer greater than 10,000 Sodium 138, potassium 5.1, BUN 36, creatinine 1.5, blood glucose 609 ABG showed a pH of 7.37, PO2 60.2, PCO2 29.8 CT head showed no acute intracranial hemorrhage or mass. There appears to be a small acute right posterior parietal/MCA territory cortical stroke. There could also possible be a hyperdense left M2 sign within the left sylvian fissure. Medical Data Reviewed: 1.Data?reviewed include clinical labs, radiology,?and medical tests; 2.Tests?results discussed w/performing or interpreting physician; 3.Obtaining/reviewing old medical records; 4.Obtaining?case history from another source; 5.Independent?review of image, tracing, or specimen. Medical Decision Making: - Extensive number of diagnosis or management options are considered below. - Extensive amount of complex data reviewed. - High risk of complication and/or morbidity or mortality are associated with differential diagnostic considerations below. - There may be?uncertain?outcome and increased probability of prolonged functional impairment or high probability of severe prolonged functional impairment associated with some of these differential diagnosis. Differential Diagnosis for Stroke: 1.?Cardioembolic?stroke 2. Small vessel disease/lacune 3. Thromboembolic, [id number] mechanism 4.?Hypercoagulable?state-related infarct 5. Transient ischemic attack 6. Thrombotic mechanism, large artery disease Assessment: 1. Acute left MCA embolic stroke 2. Possible acute right MCA embolic stroke 3. Acute respiratory failure with possible Covid pneumonia 4. Hypertension 5. Tobacco abuse Recommendations: Patient is being sent back for a CT angiogram of the head and neck to evaluate for a left MCA large vessel occlusion. If positive, patient should be transferred to a tertiary center that can offer evaluation for mechanical thrombectomy. Patient would likely require intubation prior to his transfer. If CTA head is negative for large vessel occlusion, he can be admitted to the hospital for further work-up of his symptoms. Infectious and pulmonary work-up and management per primary team Check MRI brain without contrast to rule out any acute intracranial process Check echocardiogram to gauge his cardiac function Maintain the patient on telemetry to monitor for paroxysmal atrial fibrillation Check hemoglobin A1c, lipid panel, and urine drug screen Consult PT, OT, and ST when he is more stable Maintain the patient on rectal aspirin for now Allow permissive hypertension Continue supportive care Thank you for allowing [facility] to participate in the care of your patient. Please call me, Dr. Gabriel, with any questions at [phone]. Case discussed with the ER staff and Dr. Ortiz. Critical Care notation: I was called to see this critical patient emergently. I personally evaluated this critical patient for acute stroke evaluation, and determining their eligibility for IV Alteplase and interventional therapies. I have spent approximately 7 minutes with the patient, including time at bedside, time discussing the case with other physicians, reviewing plan of care, and time independently reviewing the records and scans. 07/06/20 23:15 Reevaluation #2: 07/06/20 23:17 Please see the note from the neurologist above. Patient after arriving to did appear to have an acute CVA. Patient is platelet count is too low for TPA and also on his CT is mentioned that he has multiple subacute stroke type lesions. Patient was given aspirin. ED Medical Decision Making - Lab Data Result diagrams: 07/06/20 20:29 07/06/20 20:29 - Medical Decision Making Patient is a 59-year-old [place] gentleman who is presenting in respiratory distress. Patient was hypoxia prior to his arrival but appears to be doing well on BiPAP. Patient is does become hypoxic anytime he takes the mask off and we did have to place the patient in soft restraints. Patient was noted to have acute onset of right-sided weakness after arrival. It appears as though the patient has had a acute CVA but has some subacute lesions on CT as well. CTAs did not show any large vessel occlusion and it does not appear as he that he is a candidate for thrombectomy at this time. Patient did be sepsis protocol and was given IV fluids lactic acid was drawn and the patient was given Rocephin and azithromycin. Again his infiltrates are most likely secondary to COVID-19 infection. Patient's inflammatory markers are all elevated. Because of the extreme elevation of his D-dimer and the fact that he likely had a thrombotic episode today given the fact he had acute stroke a VQ scan will be performed. Patient will be admitted to ICU. Critical Care Time: Yes (73) Critical care attestation.: If time is entered above; I have spent that time in minutes in the direct care of this critically ill patient, excluding procedure time. ED Disposition Clinical Impression: Left middle cerebral artery stroke, COVID-19, Acute respiratory distress, Hypoxia, Hyperglycemia Bilateral pneumonia Qualifiers: Pneumonia type: due to unspecified organism Lung location: unspecified part of lung Qualified Code(s): J18.9 - Pneumonia, unspecified organism Acute renal failure Qualifiers: Acute renal failure type: unspecified Qualified Code(s): N17.9 - Acute kidney failure, unspecified Hypertension Qualifiers: Hypertension type: unspecified Qualified Code(s): I10 - Essential (primary) hypertension Disposition: OP ADMIT IP TO THIS HOSP Is pt being admited?: Yes Does the pt Need Aspirin: No Condition: Critical Instructions: Bacterial Pneumonia (ED), Hypertension (ED) Time of Disposition: 23:24
[2020-07-06] MEDS ORDERED: MORPHINE 2 MG/1 ML INJ IV PRN (23:44)
[2020-07-06] MEDS ORDERED: METOCLOPRAMIDE 10 MG TAB PO PRN (23:44)
[2020-07-06] MEDS ORDERED: PROMETHAZINE 25 MG RECT SUPP PR PRN (23:44)
[2020-07-06] MEDS ORDERED: METOCLOPRAMIDE 10 MG/2 ML INJ IV PRN (23:44)
[2020-07-06] MEDS ORDERED: ACETAMINOPHEN 325 MG TAB PO PRN (23:44)
[2020-07-06] MEDS ORDERED: ONDANSETRON 4 MG/2 ML INJ IV PRN (23:44)
[2020-07-06] MEDS ORDERED: MAGNESIUM HYDROXIDE (MOM) ORAL LIQD UDC PO PRN (23:44)
[2020-07-06] MEDS ORDERED: DEXTROSE 50% IN WATER (25GM) 50 ML SYRINGE IV PRN (23:44)
--- NOTE | 2020-07-06 23:59 | History and Physical Report ---
History of Present Illness Date of examination: 07/06/20 Date of admission: 07/06/2020 Chief complaint: Respiratory Distress History of present illness: 59-year-old male with known history of hypertension and diabetes mellitus Presenting to the emergency room today in respiratory distress. Patient is said to have had exposure to Covid 19. He is said to have had increased shortness of breath over the last 24 hours. Most of the history was gotten from the ER staff as patient is not able to communicate in [place] and also in respiratory distress. En route, oxygen saturation was said to be in the 50s and patient was placed on nonrebreather by EMS and then subsequently placed on BiPAP or per arrival in the ER.. Work-up in the emergency room today chest x-ray shows bilateral pulmonary infiltrate, labs were significant for hyperglycemia of good blood sugar was in the 600s. During the course of his stay in the emergency room he had developed right-sided facial droop and CT of the head showed: ischemic lesions of indeterminate age, possibly recent. Patient was seen by tele neurologist. Permissive hypertension was recommended and also daily aspirin. Patient's condition however deteriorated while in the emergency room as he went into respiratory failure. He was subsequently intubated. Patient was started on empiric IV antibiotics for pneumonia and also placed on isolation precautions to rule out Covid. Early Childhood Teacher Assistant was called and notified of patient's condition shortly after he was intubated. Recommendations were given for the vent settings. Patient coded twice during the course of his stay in the emergency room. He was successfully resuscitated going by the ACLS protocol. NB: Prognosis is poor. Past History Past Medical History: diabetes, hypertension Past Surgical History: No surgical history Social history: no significant social history Family history: no significant family history Medications and Allergies Allergies Allergy/AdvReac Type Severity Reaction Status Date / Time No Known Allergies Allergy Verified 07/06/20 20:54 Active Meds: Active Medications Ceftriaxone Sodium (Rocephin/Ns 2 Gm/100 Ml) 2 gm in 100 mls @ 200 mls/hr IV Q 24HR DONNIE; Protocol Last Admin: 07/06/20 20:14 Dose: 200 mls/hr Documented by: Azithromycin 500 mg/ Sodium (Chloride) 250 mls @ 250 mls/hr IV Q24HR DONNIE; Protocol Last Admin: 07/06/20 22:42 Dose: 250 mls/hr Documented by: Review of Systems Constitutional: no fever, no chills Ears, nose, mouth and throat: no nasal congestion, no sore throat Cardiovascular: no chest pain, no palpitations Respiratory: cough, shortness of breath Gastrointestinal: no abdominal pain, no nausea, no vomiting, no diarrhea Genitourinary Male: no dysuria, no hematuria, no flank pain Musculoskeletal: no neck pain, no low back pain Integumentary: no rash, no pruritis Neurological: no headaches, no confusion Psychiatric: no anxiety, no depression Exam - Constitutional Vitals: Temp Pulse Resp BP Pulse Ox 100 H 48 H 170/104 65 L 07/06/20 23:01 07/06/20 23:01 07/06/20 23:01 07/06/20 23:01 General appearance: Present: mild distress, well-nourished - EENT Eyes: Present: PERRL, EOM intact. Absent: scleral icterus ENT: hearing intact, clear oral mucosa, dentition normal - Neck Neck: Present: supple, normal ROM - Respiratory Respiratory effort: normal Respiratory: bilateral: diminished - Cardiovascular Rhythm: regular Heart Sounds: Present: S1 & S2. Absent: gallop, systolic murmur, diastolic murmur, rub - Extremities Extremities: no ischemia, pulses intact, pulses symmetrical, No edema, normal temperature, normal color, Full ROM Peripheral Pulses: within normal limits - Abdominal General gastrointestinal: Present: soft, non-tender, non-distended, normal bowel sounds. Absent: mass - Integumentary Integumentary: Present: clear, warm, dry. Absent: rash - Musculoskeletal Musculoskeletal: strength equal bilaterally - Psychiatric Psychiatric: appropriate mood/affect, intact judgment & insight, memory intact, cooperative - Neurologic Neurologic: CNII-XII intact, focal deficits (Mild Right sided facial droop), moves all extremities HEART Score - HEART Score Troponin: Troponin T 0.165 ng/mL (0.00-0.029) H* 07/06/20 21:14 Results - Labs CBC & Chem 7: 07/06/20 20:29 07/06/20 20:29 Labs: Abnormal lab results 07/06/20 07/06/20 07/06/20 Range/Units 20:10 20:29 20:29 WBC 17.7 H (4.5-11.0) K/mm3 Plt Count 70 L (140-440) K/mm3 Seg Neuts % (Manual) 92.0 H (40.0-70.0) % Lymphocytes % (Manual) 3.0 L (13.4-35.0) % Seg Neutrophils # Man 16.3 H (1.8-7.7) K/mm3 Lymphocytes # (Manual) 0.5 L (1.2-5.4) K/mm3 PT (12.2-14.9) Sec. INR (0.87-1.13) D-Dimer (0-234) ng/mlDDU ABG pO2 60.2 L (80.0-90.0) mm Hg ABG HCO3 17.1 L (20.0-26.0) mmol/L ABG O2 Saturation 89.3 L (95.0-99.0) % ABG Base Excess -6.6 L (-2.0-3.0) mmol/L Oxyhemoglobin 87.4 L (95.0-99.0) % Potassium 5.1 H (3.6-5.0) mmol/L Carbon Dioxide 20 L (22-30) mmol/L BUN 36 H (9-20) mg/dL Creatinine 1.5 H (0.8-1.3) mg/dL Glucose 605 H* (75-100) mg/dL POC Glucose (70-105) mg/dL Lactic Acid (0.7-2.0) mmol/L Ferritin (30.0-300.0) ng/mL Alkaline Phosphatase 135 H (35-129) units/L Lactate Dehydrogenase (91-180) units/L Total Creatine Kinase (55-170) units/L CK-MB (CK-2) (0.0-4.0) ng/mL Troponin T (0.00-0.029) ng/mL C-Reactive Protein (0.00-1.30) mg/dL Albumin 2.5 L (3.9-5) g/dL Triglycerides (2-149) mg/dL HDL Cholesterol (40-59) mg/dL 07/06/20 07/06/20 07/06/20 Range/Units 20:29 20:29 20:29 WBC (4.5-11.0) K/mm3 Plt Count (140-440) K/mm3 Seg Neuts % (Manual) (40.0-70.0) % Lymphocytes % (Manual) (13.4-35.0) % Seg Neutrophils # Man (1.8-7.7) K/mm3 Lymphocytes # (Manual) (1.2-5.4) K/mm3 PT (12.2-14.9) Sec. INR (0.87-1.13) D-Dimer > 53923 H (0-234) ng/mlDDU ABG pO2 (80.0-90.0) mm Hg ABG HCO3 (20.0-26.0) mmol/L ABG O2 Saturation (95.0-99.0) % ABG Base Excess (-2.0-3.0) mmol/L Oxyhemoglobin (95.0-99.0) % Potassium (3.6-5.0) mmol/L Carbon Dioxide (22-30) mmol/L BUN (9-20) mg/dL Creatinine (0.8-1.3) mg/dL Glucose 609 H* (75-100) mg/dL POC Glucose (70-105) mg/dL Lactic Acid 4.50 H* (0.7-2.0) mmol/L Ferritin (30.0-300.0) ng/mL Alkaline Phosphatase (35-129) units/L Lactate Dehydrogenase 615 H (91-180) units/L Total Creatine Kinase (55-170) units/L CK-MB (CK-2) (0.0-4.0) ng/mL Troponin T (0.00-0.029) ng/mL C-Reactive Protein 22.50 H (0.00-1.30) mg/dL Albumin (3.9-5) g/dL Triglycerides (2-149) mg/dL HDL Cholesterol (40-59) mg/dL 07/06/20 07/06/20 07/06/20 Range/Units 20:29 21:14 21:14 WBC (4.5-11.0) K/mm3 Plt Count (140-440) K/mm3 Seg Neuts % (Manual) (40.0-70.0) % Lymphocytes % (Manual) (13.4-35.0) % Seg Neutrophils # Man (1.8-7.7) K/mm3 Lymphocytes # (Manual) (1.2-5.4) K/mm3 PT 17.4 H (12.2-14.9) Sec. INR 1.43 H (0.87-1.13) D-Dimer (0-234) ng/mlDDU ABG pO2 (80.0-90.0) mm Hg ABG HCO3 (20.0-26.0) mmol/L ABG O2 Saturation (95.0-99.0) % ABG Base Excess (-2.0-3.0) mmol/L Oxyhemoglobin (95.0-99.0) % Potassium (3.6-5.0) mmol/L Carbon Dioxide (22-30) mmol/L BUN (9-20) mg/dL Creatinine (0.8-1.3) mg/dL Glucose (75-100) mg/dL POC Glucose (70-105) mg/dL Lactic Acid (0.7-2.0) mmol/L Ferritin 3604.0 H (30.0-300.0) ng/mL Alkaline Phosphatase (35-129) units/L Lactate Dehydrogenase (91-180) units/L Total Creatine Kinase 445 H (55-170) units/L CK-MB (CK-2) 11.9 H (0.0-4.0) ng/mL Troponin T 0.165 H* (0.00-0.029) ng/mL C-Reactive Protein (0.00-1.30) mg/dL Albumin (3.9-5) g/dL Triglycerides 184 H (2-149) mg/dL HDL Cholesterol 18 L (40-59) mg/dL 07/06/20 Range/Units 21:35 WBC (4.5-11.0) K/mm3 Plt Count (140-440) K/mm3 Seg Neuts % (Manual) (40.0-70.0) % Lymphocytes % (Manual) (13.4-35.0) % Seg Neutrophils # Man (1.8-7.7) K/mm3 Lymphocytes # (Manual) (1.2-5.4) K/mm3 PT (12.2-14.9) Sec. INR (0.87-1.13) D-Dimer (0-234) ng/mlDDU ABG pO2 (80.0-90.0) mm Hg ABG HCO3 (20.0-26.0) mmol/L ABG O2 Saturation (95.0-99.0) % ABG Base Excess (-2.0-3.0) mmol/L Oxyhemoglobin (95.0-99.0) % Potassium (3.6-5.0) mmol/L Carbon Dioxide (22-30) mmol/L BUN (9-20) mg/dL Creatinine (0.8-1.3) mg/dL Glucose (75-100) mg/dL POC Glucose 484 H (70-105) mg/dL Lactic Acid (0.7-2.0) mmol/L Ferritin (30.0-300.0) ng/mL Alkaline Phosphatase (35-129) units/L Lactate Dehydrogenase (91-180) units/L Total Creatine Kinase (55-170) units/L CK-MB (CK-2) (0.0-4.0) ng/mL Troponin T (0.00-0.029) ng/mL C-Reactive Protein (0.00-1.30) mg/dL Albumin (3.9-5) g/dL Triglycerides (2-149) mg/dL HDL Cholesterol (40-59) mg/dL Assessment and Plan - Patient Problems (1) Acute respiratory distress Current Visit: Yes Status: Acute Plan to address problem: Possibly secondary to the bilateral pneumonia from Covid. Patient currently intubated and sedated. (2) Bilateral pneumonia Current Visit: Yes Status: Acute Qualifiers: Pneumonia type: due to unspecified organism Lung location: unspecified part of lung Qualified Code(s): J18.9 - Pneumonia, unspecified organism Plan to address problem: Patient placed on empiric IV antibiotics. We await culture results. (3) COVID-19 Current Visit: Yes Status: Acute Plan to address problem: He has been placed on isolation precautions. Consult placed to infectious disease for evaluation. (4) Hyperglycemia Current Visit: Yes Status: Acute Plan to address problem: Patient be placed on sliding scale and will monitor blood glucose closely. (5) CVA (cerebral vascular accident) Current Visit: Yes Status: Acute Plan to address problem: We will request neurology follow-up. (6) DVT prophylaxis Current Visit: Yes Status: Acute Plan to address problem: We will place on sequential compression device. Anticoagulation withheld in view of the thrombocytopenia. (7) Full code status Current Visit: Yes Status: Acute
[2020-07-07] MEDS ORDERED: SUCCINYLCHOLINE CHLORIDE 200 MG/10 ML INJ MDV ONE (00:01)
[2020-07-07] MEDS ORDERED: ETOMIDATE 20 MG/10 ML INJ IV ONE ×3 (00:01→02:54)
[2020-07-07] MEDS ORDERED: NORepinephrine/NS 4 MG-250 ML 4 MG/250 ML BAG IV ONE ×3 (00:35→07:33)
--- NOTE | 2020-07-07 00:57 | XRay Report ---
CHEST 1 VIEW INDICATION / CLINICAL INFORMATION: post intubation. COMPARISON: Chest radiograph earlier same day FINDINGS: SUPPORT DEVICES: Interval placement of endotracheal tube with tip terminating approximately 5.8 cm ab ove the michel. Interval placement of enteric tube with tip terminating in the gastric body and side hole distal to the gastroesophageal junction. HEART / MEDIASTINUM: No significant abnormality. LUNGS / PLEURA: Moderate patchy bilateral airspace opacities appear slightly worsened from the prior study, particularly in the right mid to lower lung. No pneumothorax. ADDITIONAL FINDINGS: No significant additional findings. IMPRESSION: 1. Interval placement of endotracheal and enteric tubes which appear appropriately positioned. 2. Slight interval worsening of bilateral patchy airspace opacities. Signer Name: Leny Moore MD Signed: 07/07/2020 12:53 AM Workstation Name: [id number]
[2020-07-07] MEDS ORDERED: MINERAL OIL/PETROLATUM, WHITE OPHTH OINT 3.5 GM OU PRN (01:18)
[2020-07-07] MEDS ORDERED: MIDAZOLAM 2 MG/2 ML INJ IV PRN (01:18)
[2020-07-07] MEDS ORDERED: LIP THERAPY VASELINE TP PRN (01:18)
[2020-07-07] MEDS ORDERED: fentaNYL DRIP Premix 2,000 MCG/100 ML BAG IV ONE ×2 (01:27→05:47)
[2020-07-07] MEDS ORDERED: fentaNYL 100 MCG/2 ML INJ IV PRN (01:29)
[2020-07-07 01:44] LABS: ABG Base Excess -7.6 mmol/L (-2.0-3.0); ABG HCO3 20.9 mmol/L (20.0-26.0); ABG Methemoglobin 0.7 % (0.0-1.5); ABG PCO2 54.3 mm Hg; ABG PH 7.203 pH Units (7.350-7.450); ABG PO2 51.9 mm Hg (80.0-90.0)
[2020-07-07] MEDS: fentaNYL DRIP Premix 2,000 MCG/100 ML BAG IV SCH ×2 (01:45→06:01)
[2020-07-07] MEDS ORDERED: SUCCINYLCHOLINE CHLORIDE 200 MG/10 ML INJ MDV IV ONE (01:59)
[2020-07-07] MEDS ORDERED: NORepinephrine/NS 4 MG-250 ML 4 MG/250 ML BAG IV SCH (02:00)
[2020-07-07] MEDS ORDERED: MIDAZOLAM 100 MG in SODIUM CHLORIDE 0.9% 80 ML IV SCH (02:00)
[2020-07-07] MEDS ORDERED: dexAMETHasone 20 MG/5 ML VIAL ONE (02:18)
--- NOTE | 2020-07-07 02:45 | XRay Report ---
CHEST 1 VIEW INDICATION / CLINICAL INFORMATION: central line placement. COMPARISON: Chest radiograph earlier same day FINDINGS: SUPPORT DEVICES: Interval placement of a right IJ central venous catheter with tip terminating near t he cavoatrial junction. Stable position of endotracheal and enteric tubes. HEART / MEDIASTINUM: Stable. LUNGS / PLEURA: No significant change of patchy bilateral airspace opacities. No pneumothorax. ADDITIONAL FINDINGS: No significant additional findings. IMPRESSION: 1. Interval placement of a right IJ central venous catheter with tip terminating near the cavoatrial junction. Otherwise no significant change. Signer Name: Leny Moore MD Signed: 07/07/2020 2:41 AM Workstation Name: [id number]
[2020-07-07 03:34] LABS: Bilirubin,Urine NEG (Negative); Blood,Urine LG (Negative); Color,Urine Yellow (Yellow); Mucus,Urine 1+ /HPF
[2020-07-07] MEDS ORDERED: INSULIN LISPRO 100 UNIT/ML VIAL 3 mL SUB-Q SCH (07:30)
--- NOTE | 2020-07-07 07:34 | Event Note ---
Date: 07/07/20 Called to see patient who has been on admission for bilateral pneumonia possibly secondary to Covid who is currently intubated. Patient was said to have lost his pulse and resuscitative measures were commenced according to ACLS protocol. He was successfully resuscitated and continued on IV fluid and pressor. We will continue to monitor and sign out to incoming hospitalist. Awaits further evaluation by laundry manager.
[2020-07-07 07:50] VITALS: BP 81/59
--- NOTE | 2020-07-07 08:55 | Progress Note ---
Assessment and Plan Assessment and plan: --Cardiac arrest > 4 Current Visit: Yes Status: Acute . Plan to address problem: Status post CPR per ACLS protocol Set of cardiac enzymes, EKG Echocardiogram, cardiology consult Positive cardiac enzymes --Acute hypoxic respiratory failure; intubated Current Visit: Yes Status: Acute Plan to address problem: On ventilatory support,Acute CVA Multifactorial, cardiac arrest, bilateral pneumonia, possible Covid Nebulizers, IV steroids, pulmonary critical consulted -- Bilateral pneumonia Current Visit: Yes Status: Acute Plan to address problem: Patient placed on empiric IV antibiotics. Ventilatory support, follow cultures --Septic shock; requiring pressors Current Visit: Yes Status: Acute Plan to address problem: follow cultures, treat the underlying cause Titrate and DC when stable --PUI COVID-19 Current Visit: Yes Status: Acute Plan to address problem: Contact and droplet precautions Very high inflammatory markers Edmondson PCR requested, ID consult --Elevated D-dimers; Current Visit: Yes Status: Acute . Plan to address problem: VQ scan to rule out PE Lower extremity venous Doppler to rule out DVT Unable to give empiric anticoagulation in view of Severe thrombocytopenia as well as Acute CVA[to prevent hemorrhagic conversion] --Hyperglycemia/diabetes mellitus Current Visit: Yes Status: Acute Plan to address problem: Patient be placed on sliding scale and will monitor blood glucose closely. Accu-Chek sliding scale coverage, low-dose long-acting 70/30 insulin Closely monitor --Acute CVA (cerebral vascular accident) Current Visit: Yes Status: Acute Plan to address problem: Abnormal CT head. Patient is unstable for MRI test at this point Neurology consulted -- DVT prophylaxis Current Visit: Yes Status: Acute Plan to address problem: We will place on sequential compression device. Anticoagulation withheld in view of the thrombocytopenia. -- Full code status Current Visit: Yes Status: Acute Unable to reach family, no contact numbers available Patient had cardiac arrest total 6-7 times Very poor prognosis, The high probability of a clinically significant, sudden or life threatening deterioration of the [CVS , neuro , renal ,respiratory, metabolic and infectious disease] system(s) required my full and direct attention, intervention and personal management. The aggregate critical care time was [40] minutes. This time is in addition to time spent performing reported procedures but includes the following: [x] Data Review and interpretation [x] Patient assessment and monitoring of vital signs [x] Documentation [x] Medication orders and management Follow therapeutic consultant recommendations History Interval history: 59-year-old male with known history of hypertension and diabetes mellitus Presenting to the emergency room today in respiratory distress. Patient is said to have had exposure to Covid 19. He is said to have had increased shortness of breath over the last 24 hours. Most of the history was gotten from the ER staff as patient is not able to communicate in Sinhala and also in respiratory distress. En route, oxygen saturation was said to be in the 50s and patient was placed on nonrebreather by EMS and then subsequently placed on BiPAP or per arrival in the ER..Work-up in the emergency room today chest x-ray shows bilateral pulmonary infiltrate, labs were significant for hyperglycemia of good blood sugar was in the 600s. During the course of his stay in the emergency room he had developed right-sided facial droop and CT of the head showed: ischemic lesions of indeterminate age, possibly recent. Patient was seen by tele neurologist. Permissive hypertension was recommended and also daily aspirin. Patient's condition however deteriorated while in the emergency room as he went into respiratory failure. He was subsequently intubated. Patient was started on empiric IV antibiotics for pneumonia and also placed on isolation precautions to rule out Covid. Patient has bilateral pneumonia, septic shock, requiring pressors Subsequently patient had multiple episodes of cardiac arrest, 3 times last night and 2 times this morning requiring CPR per ACLS protocols. Unable to contact family as no contact is available. Very poor prognosis This morning when I evaluated patient is orally intubated on ventilatory support, unresponsive Hypotensive on vasopressors Vital signs noted Hospitalist Physical - Constitutional Vitals: Temp Pulse Resp BP Pulse Ox 116 H 17 81/59 79 L 07/07/20 07:42 07/07/20 07:15 07/07/20 07:42 07/07/20 07:42 General appearance: Present: mild distress, well-nourished, other (Intubated on vent, unresponsive) - EENT Eyes: Present: PERRL. Absent: scleral icterus - Neck Neck: Present: supple, other (ET tube and Dobbhoff in place) - Respiratory Respiratory effort: normal Respiratory: bilateral: diminished, rhonchi, negative: rales, wheezing - Cardiovascular Rhythm: regular Heart Sounds: Present: S1 & S2 (Tachycardia) - Extremities Extremities: no ischemia Extremity abnormal: edema - Abdominal General gastrointestinal: soft, non-tender, non-distended, normal bowel sounds - Integumentary Integumentary: Present: clear, warm - Psychiatric Psychiatric: other (Intubated on vent) - Neurologic Neurologic: other (Intubated on vent) HEART Score - HEART Score Troponin: Troponin T 0.165 ng/mL (0.00-0.029) H* 07/06/20 21:14 Results - Labs CBC & Chem 7: 07/07/20 09:20 07/07/20 09:20 Labs: Laboratory Last Values WBC 17.7 K/mm3 (4.5-11.0) H 07/06/20 20: RBC 4.81 M/mm3 (3.65-5.03) 07/06/20 20: Hgb 14.4 gm/dl (11.8-15.2) 07/06/20 20: Hct 44.5 % (35.5-45.6) 07/06/20 20: MCV 93 fl (84-94) 07/06/20 20: MCH 30 pg (28-32) 07/06/20 20: MCHC 32 % (32-34) 07/06/20 20: RDW 13.5 % (13.2-15.2) 07/06/20 20: Plt Count 70 K/mm3 (140-440) L 07/06/20 20:29 Add Manual Diff Complete 07/06/20 20: Total Counted 100 07/06/20 20: Seg Neutrophils % Manager Assurance 07/06/20 20: Seg Neuts % (Manual) 92.0 % (40.0-70.0) H 07/06/20 20: Band Neutrophils % 1.0 % 07/06/20 20: Lymphocytes % (Manual) 3.0 % (13.4-35.0) L 07/06/20 20: Reactive Lymphs % (Man) 0 % 07/06/20 20: Monocytes % (Manual) 4.0 % (0.0-7.3) 07/06/20 20: Eosinophils % (Manual) 0 % (0.0-4.3) 07/06/20 20: Basophils % (Manual) 0 % (0.0-1.8) 07/06/20 20: Metamyelocytes % 0 % 07/06/20 20:29 Myelocytes % 0 % 07/06/20 20: Promyelocytes % 0 % 07/06/20 20: Blast Cells % 0 % 07/06/20 20: Nucleated RBC % Not Reportable 07/06/20 20:29 Seg Neutrophils # Man 16.3 K/mm3 (1.8-7.7) H 07/06/20 20: Band Neutrophils # 0.2 K/mm3 07/06/20 20: Lymphocytes # (Manual) 0.5 K/mm3 (1.2-5.4) L 07/06/20 20:29 Abs React Lymphs (Man) 0.0 K/mm3 07/06/20 20: Monocytes # (Manual) 0.7 K/mm3 (0.0-0.8) 07/06/20 20: Eosinophils # (Manual) 0.0 K/mm3 (0.0-0.4) 07/06/20 20: Basophils # (Manual) 0.0 K/mm3 (0.0-0.1) 07/06/20 20: Metamyelocytes # 0.0 K/mm3 07/06/20 20: Myelocytes # 0.0 K/mm3 07/06/20 20: Promyelocytes # 0.0 K/mm3 07/06/20 20: Blast Cells # 0.0 K/mm3 07/06/20 20:29 WBC Morphology Not Reportable 07/06/20 20:29 Hypersegmented Neuts Not Reportable 07/06/20 20:29 Hyposegmented Neuts Not Reportable 07/06/20 20:29 Hypogranular Neuts Not Reportable 07/06/20 20:29 Smudge Cells Not Reportable 07/06/20 20:29 Toxic Granulation Not Reportable 07/06/20 20:29 Toxic Vacuolation Not Reportable 07/06/20 20:29 Dohle Bodies Not Reportable 07/06/20 20:29 Pelger-Huet Anomaly Not Reportable 07/06/20 20:29 Dhruv Rods Not Reportable 07/06/20 20:29 Platelet Estimate Consistent w auto 07/06/20 20:29 Clumped Platelets Not Reportable 07/06/20 20:29 Plt Clumps, EDTA Not Reportable 07/06/20 20:29 Large Platelets Not Reportable 07/06/20 20:29 Giant Platelets Not Reportable 07/06/20 20:29 Platelet Satelliting Not Reportable 07/06/20 20:29 Plt Morphology Comment Not Reportable 07/06/20 20:29 RBC Morphology Not Reportable 07/06/20 20:29 Dimorphic RBCs Not Reportable 07/06/20 20:29 Polychromasia Rare 07/06/20 20:29 Hypochromasia Not Reportable 07/06/20 20:29 Poikilocytosis Not Reportable 07/06/20 20:29 Anisocytosis Not Reportable 07/06/20 20:29 Microcytosis Not Reportable 07/06/20 20:29 Macrocytosis Not Reportable 07/06/20 20:29 Spherocytes Not Reportable 07/06/20 20:29 Pappenheimer Bodies Not Reportable 07/06/20 20:29 Sickle Cells Not Reportable 07/06/20 20:29 Target Cells Not Reportable 07/06/20 20:29 Tear Drop Cells Not Reportable 07/06/20 20:29 Ovalocytes Not Reportable 07/06/20 20:29 Helmet Cells Not Reportable 07/06/20 20:29 [place] Bodies Not Reportable 07/06/20 20:29 [place] Rings Not Reportable 07/06/20 20:29 Levar Cells Rare 07/06/20 20:29 Bite Cells Not Reportable 07/06/20 20:29 Crenated Cell Not Reportable 07/06/20 20:29 Elliptocytes Not Reportable 07/06/20 20:29 Acanthocytes (Spur) Not Reportable 07/06/20 20:29 Rouleaux Not Reportable 07/06/20 20:29 Hemoglobin C Crystals Not Reportable 07/06/20 20:29 Schistocytes Not Reportable 07/06/20 20:29 Malaria parasites Not Reportable 07/06/20 20:29 Nicholas Bodies Not Reportable 07/06/20 20:29 Hem Pathologist Commnt No 07/06/20 20:29 PT 17.4 Sec. (12.2-14.9) H 07/06/20 21:14 INR 1.43 (0.87-1.13) H 07/06/20 21:14 APTT 29.2 Sec. (24.2-36.6) 07/06/20 21:14 Thrombin Time 18.6 Sec. (15.1-19.6) 07/06/20 21:14 D-Dimer > 58735 ng/mlDDU (0-234) H 07/06/20 20:29 ABG pH 7.227 (7.320-7.450) L 07/07/20 06:12 POC ABG pCO2 43.7 mmHg (32.0-48.0) 07/07/20 06:12 ABG pCO2 54.3 mm Hg 07/07/20 01:28 POC ABG pO2 129.6 mmHg (83-108) H 07/07/20 06:12 ABG pO2 51.9 mm Hg (80.0-90.0) L 07/07/20 01:28 POC ABG HCO3 17.8 07/07/20 06:12 ABG HCO3 20.9 mmol/L (20.0-26.0) 07/07/20 01:28 ABG O2 Saturation 75.0 % (95.0-99.0) L 07/07/20 01:28 ABG O2 Content 14.7 (0.0-44) 07/07/20 01:28 POC ABG Base Excess -9.5 07/07/20 06:12 ABG Base Excess -7.6 mmol/L (-2.0-3.0) L 07/07/20 01:28 ABG Hemoglobin 14.7 (12.0-17.5) 07/07/20 06:12 ABG Carboxyhemoglobin 1.2 % (0.0-5.0) 07/07/20 01:28 ABG Methemoglobin 0.7 % (0.0-1.5) 07/07/20 01:28 ABG Sodium 138.2 mmol/L (136.0-145.0) 07/07/20 06:12 ABG Potassium 6.3 mmol/L (3.40-4.50) H 07/07/20 06:12 ABG Chloride 110.0 mmol/L (98-107) H 07/07/20 06:12 ABG Glucose 437 mg/dL (65-95) H 07/07/20 06:12 Oxyhemoglobin 73.6 % (95.0-99.0) L 07/07/20 01:28 FiO2 100.0 07/07/20 06:12 Sodium 138 mmol/L (137-145) 07/06/20 20:29 Potassium 5.1 mmol/L (3.6-5.0) H 07/06/20 20:29 Chloride 99.9 mmol/L (98-107) 07/06/20 20:29 Carbon Dioxide 20 mmol/L (22-30) L 07/06/20 20:29 Anion Gap 23 mmol/L 07/06/20 20:29 BUN 36 mg/dL (9-20) H 07/06/20 20:29 Creatinine 1.5 mg/dL (0.8-1.3) H 07/06/20 20:29 Estimated GFR 48 ml/min 07/06/20 20:29 BUN/Creatinine Ratio 24 % 07/06/20 20:29 Glucose 605 mg/dL (75-100) H* 07/06/20 20:29 Glucose 609 mg/dL (75-100) H* 07/06/20 20:29 POC Glucose 484 mg/dL (70-105) H 07/06/20 21:35 Lactic Acid 11.20 mmol/L (0.7-2.0) H* 07/07/20 06:51 Calcium 8.4 mg/dL (8.4-10.2) 07/06/20 20:29 Ferritin 3604.0 ng/mL (30.0-300.0) H 07/06/20 20:29 Total Bilirubin 0.40 mg/dL (0.1-1.2) 07/06/20 20:29 AST 27 units/L (5-40) 07/06/20 20:29 ALT 8 units/L (7-56) 07/06/20 20:29 Alkaline Phosphatase 135 units/L (35-129) H 07/06/20 20:29 Lactate Dehydrogenase 615 units/L (91-180) H 07/06/20 20:29 Total Creatine Kinase 445 units/L (55-170) H 07/06/20 21:14 CK-MB (CK-2) 11.9 ng/mL (0.0-4.0) H 07/06/20 21:14 CK-MB (CK-2) Rel Index 2.6 (0-4) 07/06/20 21:14 Troponin T 0.165 ng/mL (0.00-0.029) H* 07/06/20 21:14 C-Reactive Protein 22.50 mg/dL (0.00-1.30) H 07/06/20 20:29 Total Protein 6.5 g/dL (6.3-8.2) 07/06/20 20:29 Albumin 2.5 g/dL (3.9-5) L 07/06/20 20:29 Albumin/Globulin Ratio 0.6 % 07/06/20 20:29 Triglycerides 184 mg/dL (2-149) H 07/06/20 21:14 Cholesterol 115 mg/dL (50-199) 07/06/20 21:14 LDL Cholesterol Direct 54 mg/dL (50-130) 07/06/20 21:14 HDL Cholesterol 18 mg/dL (40-59) L 07/06/20 21:14 Cholesterol/HDL Ratio 6.38 % 07/06/20 21:14 Arterial Blood Glucose 437 mg/dL (65-95) H 07/07/20 06:12 Arterial Blood Ionized Calcium 4.7 mg/dL (4.6-5.3) 07/07/20 06:12 Urine Color Yellow (Yellow) 07/07/20 03:01 Urine Turbidity Clear (Clear) 07/07/20 03:01 Urine pH 5.0 (5.0-7.0) 07/07/20 03:01 Ur Specific [place] 1.053 (1.003-1.030) H 07/07/20 03:01 Urine Protein 30 mg/dl mg/dL (Negative) 07/07/20 03:01 Urine Glucose (UA) >=500 mg/dL (Negative) 07/07/20 03:01 Urine Ketones Tr mg/dL (Negative) 07/07/20 03:01 Urine Blood Lg (Negative) 07/07/20 03:01 Urine Nitrite Neg (Negative) 07/07/20 03:01 Urine Bilirubin Neg (Negative) 07/07/20 03:01 Urine Urobilinogen 2.0 mg/dL (<2.0) 07/07/20 03:01 Ur Leukocyte Esterase Neg (Negative) 07/07/20 03:01 Urine WBC (Auto) 16.0 /HPF (0.0-6.0) H 07/07/20 03:01 Urine RBC (Auto) 25.0 /HPF (0.0-6.0) 07/07/20 03:01 U Epithel Cells (Auto) 1.0 /HPF (0-13.0) 07/07/20 03:01 Urine Mucus 1+ /HPF 07/07/20 03:01 Microbiology: Microbiology 07/06/20 20:29 Peripheral/Venous Blood Culture - Preliminary Culture in Progress 07/06/20 20:29 Peripheral/Venous Blood Culture - Preliminary Culture in Progress [place]/IV: IV Catheter Type [Right INT / Saline Lock Antecubital] Active Medications - Current Medications Current Medications: Generic Name Dose Route Start Last Admin Trade Name Freq PRN Reason Stop Dose Admin Acetaminophen 650 mg 07/06/20 23:44 Tylenol PO Q4H PRN Pain, Mild (1-3) Aspirin 325 mg 07/07/20 10:00 Aspirin PO QDAY [facility] Atorvastatin Calcium 40 mg 07/07/20 22:00 Lipitor PO QHS [facility] Bisacodyl 10 mg 07/06/20 23:44 Dulcolax [place] QDAY PRN Constipation Dextrose 50 ml 07/06/20 23:44 D50w (25gm) Syringe IV Q30MIN PRN Hypoglycemia Protocol Fentanyl 50 mcg 07/07/20 01:29 Sublimaze IV Q10MIN PRN ANALGESIA Hydrophilic Ointment 1 applic 07/07/20 01:18 Vaseline Lip Therapy TP Q2HR PRN Dry Lips Ceftriaxone Sodium 2 gm in 100 mls @ 200 mls/hr 07/06/20 20:08 07/06/20 20:14 Rocephin/Ns 2 Gm/100 Ml IV 200 mls/hr Q24HR DONNIE Administration Protocol Azithromycin 500 mg/ Sodium 250 mls @ 250 mls/hr 07/06/20 21:00 07/06/20 22:42 Chloride IV 250 mls/hr Q24HR DONNIE Administration Protocol Midazolam HCl 100 mg/ Sodium 100 mls @ 2 mls/hr 07/07/20 02:00 07/07/20 01:30 Chloride IV 2 mg/hr TITR DONNIE 2 mls/hr Administration Protocol 2 MG/HR Fentanyl Citrate 2,000 mcg in 100 mls @ 3.379 mls/hr 07/07/20 02:00 07/07/20 06:01 Fentanyl Drip Premix IV 4 mcg/kg/hr TITR DONNIE 13.517 mls/hr Administration Protocol 1 MCG/KG/HR Norepinephrine 4 mg in 250 mls @ 7.5 mls/hr 07/07/20 02:00 07/07/20 05:46 Levophed Drip 4 Mg/Ns 250 Ml IV 30 mcg/min TITR DONNIE 112.5 mls/hr Titration Protocol 2 MCG/MIN Insulin Human Lispro 0 unit 07/07/20 07:30 Humalog SUB-Q ACHS DONNIE Protocol Magnesium Hydroxide 30 ml 07/06/20 23:44 Milk Of Magnesia PO Q4H PRN Constipation Metoclopramide HCl 10 mg 07/06/20 23:44 Reglan PO Q6H PRN Nausea And Vomiting Metoclopramide HCl 10 mg 07/06/20 23:44 Reglan IV Q6H PRN Nausea And Vomiting Midazolam HCl 2 mg 07/07/20 01:18 Versed IV Q10MIN PRN Sedation Morphine Sulfate 2 mg 07/06/20 23:44 Morphine IV Q4H PRN Pain, Moderate (4-6) Multi-Ingred Cream/Lotion/Oil/Oint 1 applic 07/07/20 01:18 Artificial Tears Ophth Oint OU Q4HR PRN Dry Eye(s) Ondansetron HCl 4 mg 07/06/20 23:44 Zofran IV Q8H PRN Nausea And Vomiting Promethazine HCl 25 mg 07/06/20 23:44 Phenergan [place] Q6H PRN Nausea And Vomiting Sodium Chloride 10 ml 07/07/20 10:00 Sodium Chloride Flush Syringe 10 Ml IV BID DONNIE Sodium Chloride 10 ml 07/06/20 23:44 Sodium Chloride Flush Syringe 10 Ml IV PRN PRN LINE FLUSH
[2020-07-07 09:32] LABS: Mean Corpuscular HGB Conc 30 % (32-34); Mean Corpuscular Volume 101 fl (84-94); Red Blood Count 4.31 M/mm3 (3.65-5.03)
[2020-07-07 09:36] LABS: Hematocrit 43.4 % (35.5-45.6); Platelet Count 60 K/mm3 (140-440)
[2020-07-07 09:57] LABS: Calcium 7.5 mg/dL (8.4-10.2)
[2020-07-07] MEDS ORDERED: VASOPRESSIN 20 UNIT in SODIUM CHLORIDE 0.9% 100 ML IV SCH (10:00)
[2020-07-07] MEDS ORDERED: ASPIRIN 325 MG TAB PO SCH (10:00)
[2020-07-07] MEDS ORDERED: dexAMETHasone 4 MG/ML VIAL IV SCH (10:00)
--- NOTE | 2020-07-07 10:31 | Event Note ---
Date: 07/07/20 Patient had multiple codes[cardiac arrest] requiring CPR per ACLS protocol since last night. Patient could not be revived and pronounced at 1029 on 07/07/2020 Time of ; 10:29 on 07/07.
--- NOTE | 2020-07-07 10:31 | Death Summary ---
Summary - Providers Date of service: 07/07/20 Consults: 07/06/20 Consult to Physician [CONS] Routine Comment: Consulting Provider: JOSE CROWDER Physician Instructions: Reason For Exam: CVA 07/06/20 23:44 Consult to Dietitian/Nutrition [CONS] Routine Physician Instructions: Reason For Exam: Reason for Consult: Nutrition Recommendations Reason for Consult: Diet education Consult to Physician [CONS] Routine Comment: Consulting Provider: HEMANT CHEATHAM Physician Instructions: Reason For Exam: CVA, Hyperglycemia, Pneumonia-covid 19,Intubated Occupational Therapy Evaluate and Treat [CONS] Routine Comment: Reason For Exam: Neuro deficits Physical Therapy Evaluation and Treat [CONS] Routine Comment: Reason For Exam: Neuro deficits 07/07/20 01:19 Consult to Dietitian/Nutrition [CONS] Routine Physician Instructions: Reason For Exam: Reason for Consult: Evaluate nutritional intake 07/07/20 08:35 Consult to Physician [CONS] Urgent Comment: Consulting Provider: RAMU ROMAN Physician Instructions: Reason For Exam: PUI/elevated markers/COVID exposure/septic shock 07/07/20 09:00 Consult to Physician [CONS] Routine Comment: Consulting Provider: ALVAREZ TAPIA Physician Instructions: Reason For Exam: Cardiac arrest Attending: GARIMA DOYLE - summary Date of admission: 07/06/20 23:27 Date of : 07/07/20 (10:29) Reason for admission: Acute hypoxic respiratory failure Significant findings: 59-year-old male with known history of hypertension and diabetes mellitus was admitted through the emergency room today with acute respiratory failure. Patient was said to have had exposure to Covid 19. He is said to have had increased shortness of breath over the last 24 hours. Most of the history was gotten from the ER staff as patient is not able to communicate in French and also in respiratory distress. En route, oxygen saturation was said to be in the 50s and patient was placed on nonrebreather by EMS and then subsequently placed on BiPAP or per arrival in the ER..Work-up in the emergency room today chest x-ray shows bilateral pulmonary infiltrate, labs were significant for hyperglycemia peak blood sugar was in the 600s.During the course of his stay in the emergency room he had developed right- sided facial droop and CT of the head showed: ischemic lesions of indeterminate age, possibly recent. Patient was seen by tele neurologist. Permissive hypertension was recommended and also daily aspirin. Patient's condition however deteriorated while in the emergency room as he went into respiratory failure. He was subsequently intubated. Patient was started on empiric IV antibiotics for pneumonia and also placed on isolation precautions to rule out Covid. Patient has bilateral pneumonia, septic shock, requiring pressors. Pulmonary critical, cardiology, ID was consulted however Subsequently patient had multiple episodes of cardiac arrest, about 6-7 times requiring CPR per ACLS protocols. Please refer to code sheet Patient could not be revived. And patient was pronounced at 10:29 on 07/07/2020 Time of ; 10:29, on 07/07/2020 During the time of patient's stay in the hospital in the ER efforts were made to contact next of kin family or friend, With great difficulty could contact, patient's friends Santo Castaneda at [phone] and Iveth Rush at [phone]. Information was given to them Of patient's condition , multiple events of cardiac arrest and expiration. Final diagnosis; --Cardiac arrest >7-8 times Current Visit: Yes Status: Acute . Plan to address problem: Status post CPR per ACLS protocol Patient could not be revived, at 10;29 on 07/07/2020 --Acute hypoxic respiratory failure; intubated Current Visit: Yes Status: Acute Plan to address problem: On ventilatory support,Acute CVA Multifactorial, cardiac arrest, bilateral pneumonia, possible Covid Patient -- Bilateral pneumonia Current Visit: Yes Status: Acute Plan to address problem: Patient placed on empiric IV antibiotics. Ventilatory support, patient --Septic shock; requiring pressors Current Visit: Yes Status: Acute Plan to address problem: Patient exoired --PUI COVID-19 Current Visit: Yes Status: Acute Plan to address problem: Contact and droplet precautions Very high inflammatory markers Edmondson PCR requested, ID consult --Elevated D-dimers; Current Visit: Yes Status: Acute . Plan to address problem: VQ scan to rule out PE Lower extremity venous Doppler to rule out DVT Unable to give empiric anticoagulation in view of Severe thrombocytopenia as well as Acute CVA[to prevent hemorrhagic conversion] --Hyperglycemia/diabetes mellitus Current Visit: Yes Status: Acute Plan to address problem: Patient be placed on sliding scale and will monitor blood glucose closely. Accu-Chek sliding scale coverage, low-dose long-acting 70/30 insulin Closely monitor --Acute CVA (cerebral vascular accident) Current Visit: Yes Status: Acute Plan to address problem: Abnormal CT head. Patient is unstable for MRI test at this point Neurology consulted -- DVT prophylaxis Current Visit: Yes Status: Acute Plan to address problem: We will place on sequential compression device. Anticoagulation withheld in view of the thrombocytopenia. -- Full code status Current Visit: Yes Status: Acute Patient had cardiac arrest multiple times Requiring CPR per ACLS protocol Patient could not be revived Patient Procedures/treatments rendered: Intubation and mechanical ventilation Multiple codes requiring CPR per ACLS protocols Refer to code sheet Pertinent studies: CT head CTA neck CTA head Multiple chest x-rays - Final diagnosis (1) Acute respiratory failure with hypoxia Note: Final diagnosis: (2) Severe sepsis Note: Final diagnosis: (3) Septic shock Note: Final diagnosis: (4) Bilateral pneumonia Qualifiers: Pneumonia type: due to Mycoplasma pneumoniae Note: Final diagnosis: (5) Acute CVA (cerebrovascular accident) Note: Final diagnosis: (6) Cardiac arrest Note: Final diagnosis:
--- NOTE | 2020-07-07 10:35 | Event Note ---
Date: 07/07/20 Patient coded multiple times since intubation. He is maxed on several pressors, with very low O2 sats. he could not tolerate proning. Given the multiple amount of times he has coded I would suggest at next code, patient be assessed and time of be called as his current state is not compatible with life. The primary team has made multiple efforts to contact family with no success.
[2020-07-07] MEDS ORDERED: EPINEPHrine 1 MG/1 ML 8 MG in SODIUM CHLORIDE 0.9% 250ML 242 ML IV SCH (11:00)
[2020-07-07 11:11] LABS: Anisocytosis 1+; Basophils % (Manual) 0 % (0.0-1.8); Eosinophils % (Manual) 0 % (0.0-4.3); Poikilocytosis 2+; Total Cells Counted 100
[2020-07-07 11:12] LABS: Burr Cells 2+; Platelet Estimate Consistent w Auto; Toxic Granulation 2+; Toxic Vacuolation 1+
[2020-07-07] MEDS ORDERED: INSULIN NPH/REGULAR 70/30 INJ SUB-Q SCH (17:00)
[2020-07-08] MEDS: INSULIN LISPRO 100 UNIT/ML VIAL 3 mL SUB-Q SCH (08:41)
[2020-07-08] MEDS: cefTRIAXone/NS 2 GM/100 ML 2 GM/100 ML BAG IV SCH (08:42)
[2020-07-08] MEDS: AZITHROMYCIN 500 MG in SODIUM CHLORIDE 0.9% 250ML 250 ML IV SCH (08:43)
== END 2020-07-07 12:00 ==
LOC: EDBD → ED 19:55 → UNDOADMIN 23:27 → CC1 23:27
DX: U07.1 COVID-19 (principal); R73.9 Hyperglycemia, unspecified; I63.512 Cerebral infarction due to unspecified occlusion or stenosis of left middle cerebral artery; R09.02 Hypoxemia; R06.03 Acute respiratory distress; J18.9 Pneumonia, unspecified organism; I10 Essential (primary) hypertension
CPT/HCPCS: 31500; 36415; 36600; 70450; 70496; 70498; 71045; 80053; 80061; 81001; 82140; 82550; 82553; 82728; 82803; 82805; 82947; 82962; 83615; 83735; 84100; 84145; 84484; 85007; 85025; 85379; 85610; 85670; 85730; 86140; 87040; 87070; 87086; 87205; 92950; 94002; 96361; 96374; 96375; 99291; J0330; J0456; J0696; J1100; J2250; J3010; J7030; J7040; J7050; Q9967; 96365; 96366; 96367; 96368; 96376; G0378; J1815